=== PATIENT | male | born 1945 | race Caucasian/White ===

== ENCOUNTER 2021-12-03 07:50 | Outpatient (CLI) | payer OTHER, MEDICARE, SELFPAY ==
--- NOTE | 2021-12-03 08:34 | PCM.PR.HP ---
History of Present Illness Arrival date:: 12/03/21 Arrival time:: 08:00 Date of Referral:: 11/05/21 Date of Evaluation: 12/03/21 Referring Physician: OMKAR STACY Primary Diagnosis: COPD [facility] Breathless Scale: When is the patient short of breath? Y/N Grade: Description of Breathlessness: 0 I only get breathless with strenuous exercise. 1 I get short of breath when hurrying on level ground or walking up a slight hill. 2 On level ground, I walk slower than people of the same age because of breathless, or have to stop for breath when walking at my own pace. 3 I stop for breath after walking 100 yards or after a few minutes on level ground. 4 I am too breathless to leave the house or I am breathless when dressing. Respiratory Problems: Yes: Limited Range of Motion, Fatigue, Able to Speak in Full Sentences, Ankle Swelling, Dyspnea with Activity, Cough with Secretions No: Dizziness, Hoarseness, Anxiety, Panic, Dyspnea at Rest, Dyspnea Lying Down Flat - Secretions Normal Color:: clear Thin:: Yes Amount/Day:: 1 TSP Cough:: Yes AM: Yes Hx of Sleep Apnea: No Do you snore loudly (louder than talking or can be heard through closed doors)?: Yes Do you often feel tired/ fatigued/ sleepy during daytime?: No Has anyone observed you stop breathing during sleep?: No History of Hypertension (for STOP score): Yes STOP Results: Positive Home Medications: Home Medications albuterol mcg INHALATION PRN 12/03/21 allopurinol 100 mg PO DAILY 12/03/21 aspirin 81 mg PO DAILY 12/03/21 atorvastatin 40 mg PO QHS 12/03/21 carboxymethylcellulose ea MISCELLANEOUS 12/03/21 doxazosin 8 mg PO QHS 12/03/21 guaifenesin [Mucinex] 600 mg PO BID 12/03/21 hydrochlorothiazide 25 mg PO DAILY 12/03/21 trazodone 200 mg PO QHS 12/03/21 umeclidinium-vilanterol [Anoro Ellipta] 1 inh INHALATION DAILY 12/03/21 Allergies/Adverse Reactions: Allergies lisinopril Allergy (Verified 12/03/21 08:42) Other Medical Utilization Do you use a peak flow meter at home?: No Do you use a spacer device with your inhalers?: No Number of hospital visits in the last year?: 1 Number of emergency room visits in the last year?: 1 Do you see your physician on a regular schedule?: Yes How often?: 3 months Advanced Directives - Advanced Directives Power of Direct Service Provider: Yes Living Will: Yes Advance Directives Information Provided: No Advance Directives on File: No DNR Order?:: No - MOLST See MOLST form: No Past Medical History - Covid-19 Screening Fever: No Unexplained muscle aches: No Current respiratory symptoms: No Upper respiratory infections symptoms: No Gastro-intestinal symptoms: No [id number]-[id number] symptoms: No Has tested positive for COVID-19 in last 30 days: No Date of testin12/03/21 - been fully vaccinated including booster Had contact w/person w/symptoms or Covid-19 (+) last 14 days: No Has High Risk Exposures ID'd by Health dept/Inf Control team: No 65 years or older:: Yes Lives in Assisted Living facility:: No Has a chronic lung disease or moderate to severe asthma:: Yes Has a serious heart condition:: No Immunocompromised:: No Severely obese (Body Mass Index of 40 or higher):: No Diabetic:: No Has chronic kidney disease undergoing dialysis:: No Has liver disease:: No Medical History: Past Medical History (Last Updated 12/03/21 @ 08:49 by Wilbur Simpson, [employer], PRIMARY CLINICIAN, BS) Arthralgia M25.50 Arthritis M19.90 Bladder cancer C67.9 Chronic kidney disease, stage 3 N18.30 COPD (chronic obstructive pulmonary disease) J44.9 Diverticulitis K57.92 Enlarged prostate N40.0 Former smoker Z87.891 H/O hemorrhoids Z87.19 Hyperlipidemia E78.5 Hypertension I10 Insomnia G47.00 Low back pain M54.50 Malignant neoplasm of gastrointestinal tract C26.9 Restless leg syndrome G25.81 Retinopathy H35.00 Shoulder pain, left M25.512 Sleep disturbance, unspecified G47.9 - Current/ Previous Services Pulmonary Rehab:: No Social History - Smoking History Smoking Status: Former smoker Hx Tobacco Use: No Hx Smoking Exposure: No - Alcohol Use Alcohol Usage: No - Substance Abuse Hx Substance Use: No - Occupation Occupation (List type of work in comments):: Retired - Hobbies, Recreation, Social Activities Hobbies: Woodworking, Other Recreational Activities: I am able to engage in a few activities Functioning ADL/IADL - Current Ability Current Ability: Independent Self-Care (e.g.,grooming, dressing, & bathing), Independent Ambulation, Independent Transfer, Independent Household tasks (e.g., light meal prep, laundry, shopping) - Pt Functioning Prior to Problem Prior Functioning: Self-Care (e.g.,grooming, dressing, & bathing): Independent, Ambulation: Independent, Transfer: Independent, Household tasks (e.g., light meal prep, laundry, shopping): Independent Social Environment - Status Marital Status: - Current Living Arrangements Living Environment:: Home care provider - Children How many children do you have?: 0 Do any of your children live nearby?: No - Safety Do you feel safe in your surroundings?: Yes - Assistance Do you need any assistance at home?: no Review of Systems Review of Systems: Right click = Denies ([place]ash). Left click = Reports ([place]) Respiratory: Reports: Cough, SOB upon Exertion, Appetite, Normal, Dizziness/Lightheadedness, Fatigue. Denies: Sexual changes, Sleep, Normal - insomnia, RLD, sleep disturbance Is Patient Pain Free?: No Pain Location: none Risk Factor Assessment - Vital Signs Temperature: 98.6 F Pulse Rate: 74 Pulse Rhythm: Regular Respiratory Rate: 16 Pulse Ox: 93 Blood Pressure: 122/81 - Diabetes Nutrition Referral for Diabetes: No - Obesity Height: 6 ft Weight:: 269 lb Weight in Pounds: 269.0 lbs Weight Source: Estimated by Patient Body Mass Index (BMI): 36.4 Nutritional Referral for Obesity: Yes - Why Weight Program - Physical Activity Physical Inactivity: None - Risk Stratification Risk Guidelines: Lowest Risk: Risk Factor for Smoking, Risk Factor for Dyslipidemia, Risk Factor for Diabetes, Risk Factor for Hypertension, Risk Factor for Depression, Highest Risk: Risk Factor for Obesity, Risk Factor for Sedentary Lifestyle Motivation - Motivation to Participate On a scale of 1 to 10, how prepared are you to commit to attending program?: 6 What do you see as barriers to successfully being able to complete the program?: iron deficiency, little motivation What do you see as the benefits of succesfully completing the program? In other words, what do you hope to get out of participating in the program?: increase endurance, healthier, help in great strides Are there issues you are dealing with that will interfere with completing the program?: none Do you have a spouse or signficant other, family or friends who will help support you to complete the program?: yes Diagnostic Data Review - Pulmonary Function Test FEV1:: 2.48 FVC:: 4.41 FEV1/FVC%:: 56 Gold Classification: GOLD class III(severe COPD)with FEV1/FVC<70, 30%</=FEV1< 50% predicted
[2021-12-03 08:55] VITALS: BP 122/81; PULSE 74; RESP 16; TEMP 37; O2SAT 93; BMI 36.4
--- NOTE | 2021-12-03 09:41 | PCM.PR.TP ---
General Information2 - General Information Admitting Diagnosis: COPD Gold Classification:: GOLD 3: Severe - Personal Learning Style/Barriers Personal Learning Style:: Audio/Visual, Written Barriers to Learning: Vision impaired, Hearing impaired Stage of change r/t lifestyle modifications: Pre-Contemplation Educational Classes HI: Living with Chronic Lung Disease: Initial Assessment, Breathing Retraining: Initial Assessment, Exercise: Initial Assessment, Energy Conservation: Initial Assessment, Airway clearance: Initial Assessment - Education/Goals Individual Counseling: Initial Assessment: High Blood Pressure, Overweight/Obesity, Waist Circumference: <35 females <40 males, Sedentary Lifestyle HI Patient Goals: Increase muscle strength: Initial Assessment, Experience less dyspnea: Initial Assessment, Improve energy level: Initial Assessment, Improve the ability to cope with ADLs: Initial Assessment, Improve diet and nutrition: Initial Assessment Exercise - Initial Assessment - Visit Date of Eval: 12/03/21 Session Number:: 0 - PRE-PULM REHAB EVALUATION - Problem/Goals Problems: Deconditioning, No regular exercise Goals:: HI: 2-3/wk for 18 weeks [36 sessions] - Physician Prescribed Exercise Modalities: Treadmill, Airdyne, NuStep Frequency (days/week): 3 Duration (Minutes):: 30-45 Intensity: 60-80% of age predicted maximum heart rate reserve Current METSs:: 3.0 Target HR:: 124 - 95-124 THRR Resting Blood Pressure: 122/81 Minimum SpO2 with exercise: 92 EKG Type: NSR w/occasional PVCs. - Plan Plan and Plan to Review:: Benefits of exercise, Core components of exercise, How to measure dyspnea level, How to monitor dyspnea level, Exercise intensity, Exercise safety guideline, Home exercise guidelines, Josr: 3-4/11-13 Home Exercise Mode: Walking Nutrition/Wt Mgmt - Initial - Visit Date of Eval: 12/03/21 Session Number:: 0 - pre-pulm rehab eval - Problems/Goals Problems: Overweight Goals: Wt Loss 1-2 lbs per week - Weight Management Knowledge Deficit Management of:: Overweight Admit Height:: 6 ft Admit Weight:: 269 lb Admit BMI:: 36.4 - Intervention Referral to dietitian:: Yes Will attend diet classes:: Yes Intervention/Plan: Instruct on ideal BMI & set weight loss goal w/patient, Assist pt to ID & incorporate diet changes for weight loss by S9, Refer to Structured Weight Loss program as appropriate, Encourage goal of using 250-300dcal per session for weight loss - Plan Nutrition Plan: Yes Review BMI or WC & identify target wt & strategies for wt control, Yes Nutrition education class:, Yes Weight control education class:, Yes Education re: Need for ongoing weight monitoring Psychosocial - Initial Assess - Visit Date of Eval: 12/03/21 Session Number:: 0 - pre-pulm rehab eval - Problems/Goals History of Emotional Disorders: None - Psychosocial Test Tool Used:: Pulmonary QOL, PHQ-9 Questionnaire - Referral to Behavioral Health PS - Interventions: Yes Attend Stress Management Classes, No Referral to Behavioral Health if PHQ-9 score >9:, No Referral to [facility], No Referral to Physician if PHQ-9 if score is 5-9: - Intervention/Plan: See List Interventions/Plan:: Assess stressors,coping strategies & signs of derpression on admission, Instruct/assist pt to develop coping & personal stress Mgt strategies, Instruct patient to recognize signs & symptoms of depression, Instruct patient to recog Oxygen & Oxygen Titration Init - Visit Date of Eval: 12/03/21 Session Number:: 0 - pre- pulm rehab eval - Initial Assessment Oxygen on Admission: None SpO2:: 93 - o2 at 2 liter HS Patient Reports:: Prod cough daily <1 Tbsp, Hospitalized in the past 12 months [list how many times] - 1 - exacerbation COPD - Goal Oxygen & Oxygen Tritration Goals: Effective hypoxemia control - Plans Plan: Monitor SpO2 rest & with exercise, Train appropriate O2 use with exercise, Train O2 safety & systems Reviewed prescribed medications:: Purpose, Schedule, Side effects, Importance of compliance Instruct correct technique/timing & care:: MDI Bronchial Hygiene Plan: Controlled cough, Vibratory PEP device, Hydration, Hand hygiene, Signs/symptoms to report: Core Components - Initial - Visit Date of Eval: 12/03/21 Session Number:: 0 - pre-pulm rehab eval - Hypertension Hypertension Diagnosis:: Hypertension ICD-10 I10 BP: 122/81 [place] [employer] Hypertension Guidelines: [place] [employer] Hypertension Guidelines. Normal BP Less than 120/80. Elevated BP 120/80. Hypertension Stage 1: BP 130-139/80-89. Hypertesnion Stage 2: BP 140 or higher/90 or higher. Hypertension Crisis: BP higher than 180/120 Low Sodium diet: Yes Outcomes/Goals: Able to verbalize/achieve optimal blood pressure <130/80, Incorporates diet changes & exercise for blood pressure control by DC - Exacerbation Mgmt & Airway Clearance Problems:: No portable O2 Hypoxemia Goals:: Hypoxemia managed Bronchial Hygiene Problems:: Ineffective secretion clearance, Respiratory infection Prevention/Management Goals: Pt demonstrates effective cough, effective secretion clearance., Pt describes signs and symptoms of infection. Patient Reports:: Prod cough daily <1 Tbsp Plan: Monitor SpO2 rest & with exercise Bronchial Hygiene Plan: Vibratory PEP device, Hydration, Hand hygiene - Medication Medication Goals: Adherence to prescribed medications Does pt report taking home meds as prescribed?: Yes - Diabetes Diabetes:: No - Heart Failure Documenting weight daily for CHF: No Core Components - 30 DAYS Core Components - 60 DAYS Core Components - 90 DAYS Core Components - Final Patient Health Questionnaire Initial Assessment 1. Little interest or pleasure in doing things: Several days 2. Feeling down, depressed, or hopeless: Not at all 3. Trouble falling or staying asleep, or sleeping too much: Several days 4. Feeling tired or having little energy: More than half the days 5. Poor appetite or overeating: Not at all 6. Feeling bad about yourself -- or that you are a failure or have let yourself or your family down: Not at all 7. Trouble concentrating on things, such as reading the newspaper or watching television: Not at all 8. Moving or speaking so slowly that other people could have noticed. Or the opposite - being so fidgety or restless that you have been moving around a lot more than usual: Not at all 9. Thoughts that you would be better off , or of hurting yourself in some way: Not at all How difficult have these problems made it for you to do your work, take care of things at home, or get along with other people?: Somewhat difficult Total Score: 4 Knowledge Questionaire (BCKQ) - Information Information: [place] COPD Knowledge Questionnaire (BCKQ) This questionnaire is designed to find out what you know about your lung problem. It should be completed without help form anyone else. This usually takes between 10 and 20 minutes. Your answers will help us to find out what information you need to help you to understand and manage your lung condition. [place] which you think is the correct answer. - Questions b. COPD can only be confirmed by breathing tests: False c. In COPD ther is usually gradual worsening over time: True d. In COPD oxygen levels in the blood are always low: True e. COPD is usually in people less than 40 years old: False Chris than 80% of COPD cases are caused by cigarette smoking: True b. COPD can be caused by occupational dust exposure: True c. Longstanding asthma can develop into COPD: True d. COPD is commonly an inherited disease: False e. Women are less vunerable to the effects of cigarette than men: False a. Swelling of the ankles is common in COPD:: Don't know b. Fatigue [tiredness] is common in COPD: True c. Wheezing is common in COPD: True d. Crushing chest pain is common in COPD: False e. Rapid weight loss is common in COPD: False a. Severe breathlessness prevents travel by air: True b. Breathlessness can be worsened by eating large meals: Don't know c. Breathlessness means that your oxygen levels are low: True d. Breathlessness is a normal response to exercise: False e. Breathlessness is primarily caused by a narrowing of the bronchial tubes: Don't know a. Coughing phlegm is a common symptom in COPD: True b. Clearing phlegm is more difficult if you get dehydrated: Don't know c. Bronchodilator inhalers can help clear phlegm: True d. Phlegm causes harm if swallowed: False e. Clearing phlegm can be assisted by breathing exercises: True a. Chest infections often cause coughing of blood: Don't know b. Chest infection phlegm usually becomes coloured (ylw/grn): Don't know cExerbations (episodes of worsening) can occur in the absence of chest infection: Don't know d. Chest infections are always accompanied by a high temperature: False e. Steroid tablets should be taken whenever there is an exacerbation: Don't know aWalking excercises better than breathing to improve fitness: Don't know b. Exercise should be avoided as it strains the lungs: False c. Exercise can help maintain your bone density: False d. Exercise helps relieve depression: False e. Exercise should be stopped if it makes you breathless: Don't know a. Stopping smoking will reduce the risk of heart disease: True b. Stopping smoking will slow down further lung damage: True c. Stopping smoking is pointless as the damage is done: False d.Stopping smoking usually results in improved lung function: True eNicotine replacement therapy only available on prescription: False a. A flu jab is recommended every year: True b. You can get flu from having a flu jab: Don't know c. You can only have a flu jab if you are 65 or over: False d. A pneumonia jab protects against all forms of pneumonia: False e.You can have a pneumonia jab and a flu job on the same day: Don't know a. Bronchodilators act quickly (within 10 minutes): Don't know b. Both short & long acting bronchodilators can be taken on the same day: True c. Spacers (volumatic,nebuhaler,serochamber)should be dried w/atowel after washing: True d. A spacer device increases the medication to the lungs: Don't know e. Tremor may be a side effect of bronchodilators: False a. To be effective, the course should last at least 10 days: Don't know b. Excessive use of antibiotics can cause resistant bacteria (germs): Don't know c. Antibiotics will clear all chest infections: False d. Antibiotic treatment is necessary for an exacerbation (worsening) however mild: True e. Seek advice if antibiotics cause severe diarrhoea: True a. Steroid tablets help strengthen muscles: False b. Steroid tablets should be avoided if there is a chest infection: Don't know c. The risk of long-term side effects due to steroids is less w/short courses then w/continous treatment: Don't know dIndigestion is common side effect from using steroid tablet: False e. Steroid tablets can increase your appetite: Don't know a. Inhaled steroids should be stopped if you are given steroid tablets: Don't know bSteroid inhalers can be used for rapid relief breathlessnes: True c. Spacer devices reduce the risk of getting thrush in the mouth: Don't know d.Steroid inhaler should be taken before your bronchodilator: Don't know e. Inhaled steroids improve lung function in COPD: Don't know COPD Assessment Test [CAT] - Questions No phlegm = 0, Chest full of phlegm = 5: 4 No chest tightness = 0, Chest very tight = 5: 3 No breathless w/exertion = 0, Very breathless w/exertion = 5: 4 No limitations w/activity = 0, Very limited w/activity = 5: 4 Confident leaving home = 0, Not at all confident = 5: 1 Sleep soundly = 0, Don't sleep soundly = 5: 3 Lots of energy = 0, No energy at all = 5: 3 Self-Efficacy Initial Assessment We would like to know how confident you are in doing certain activities. Please select your confidence level for:: Select your confidence level for the following using the scale 1-10 where 1 is not at all confident and 10 is totally confident. Your score is the average of all 6 responses. Fatigue: How confident are you that you can keep the fatigue caused by your disease from interfering with the things you want to do? Select Number: 7 Physical Discomfort or Pain: How confident are you that you can keep the physical discomfort or pain of your disease from interfering with the things you want to do? Select Number: 8 Emotional Distress: How confident are you that you can keep the emotional distress caused by your disease from interfering with the things you want to do? Select Number: 9 Other Symptoms or Health Problems: How confident are you that you can keep other symptoms or health problems from interfering with the things you want to do? Select Number: 8 Different Tasks and Activities: How confident are you that you can do the different tasks and activities needed to manage your health condition so as to reduce your need to see a doctor? Select Number: 6 Medication: How confident are you that you can do things other than just taking medication to reduce how much your illness affects your everyday life? Select Number: 7 Total Score:: 7 Nutrition Survey - Nutrition Survey Initial Have you lost >10 lbs over the past 2 months without trying?: No Are you following a special diet at home for diabetes, low fat, or low salt?: No Are you interested in meeting with a dietitian for help understanding your diet?: Yes Do you eat less than 3 meals a day?: No Do you eat fatty meats (miranda, sausage, ribs, etc), fried foods, desserts, large amounts of salad dressings, margarine, butter, or cheese most days?: Yes Do you have food allergies? [Enter types in comment field]: No Do you eat in restaurants more than 3 times a week?: No Do you season food with salt, seasoning salt, or garlic salt?: No Do you used canned, boxed, frozen meals, or soups, seasoning packets?: No Total Score:: 2
[2021-12-03 09:54] VITALS: BP 122/81; O2SAT 93; BMI 36.4
== END 2021-12-03 23:59 | disposition home or self-care (01) ==
PROVIDERS: PCP Student in an Organized Health Care Education/Training Program
DX: I12.9 Hypertensive chronic kidney disease with stage 1 through stage 4 chronic kidney disease, or unspecified chronic kidney disease (principal); N18.30 Chronic kidney disease, stage 3 unspecified; E78.5 Hyperlipidemia, unspecified

== ENCOUNTER 2021-12-18 10:30 | Outpatient (RCR) | payer OTHER, SELFPAY | END 2021-12-19 23:59 | LOC: PR 10:30 | PROVIDERS: PCP Student in an Organized Health Care Education/Training Program | DX: J44.9 Chronic obstructive pulmonary disease, unspecified (principal) | CPT/HCPCS: 97150; 94626 ==

== ENCOUNTER 2022-01-04 08:30 | Outpatient (RCR) | payer MEDICARE, SELFPAY ==
[2022-01-01 07:27] VITALS: BMI 38.1
== END 2022-01-19 23:59 ==
LOC: NS 08:30
PROVIDERS: PCP Student in an Organized Health Care Education/Training Program
DX: Z71.3 Dietary counseling and surveillance (principal); I12.9 Hypertensive chronic kidney disease with stage 1 through stage 4 chronic kidney disease, or unspecified chronic kidney disease; N18.30 Chronic kidney disease, stage 3 unspecified; E78.5 Hyperlipidemia, unspecified
CPT/HCPCS: 97802

== ENCOUNTER 2022-01-15 10:30 | Outpatient (RCR) | payer OTHER, SELFPAY ==
--- NOTE | 2022-01-01 07:16 | PR.ITP_ITS ---
Exercise - 30-Day Assessment - Visit Date of Eval: 01/01/22 Session Number:: 8 - Physician Prescribed Exercise Modalities: Treadmill, Biodyne - Schwinn Airdyne Cycle, NuStep Intensity: 60-80% of age predicted maximum heart rate reserve Aerobic Exercise [30-60 min 3-7x/week]:: Progressing Josr-13 Current METSs:: 4.0 Target HR:: 125 - 95-125 THRR Current RPD:: 3 Maximum Exercise HR:: 83 Resting Blood Pressure: 118/64 Maximum Exercise Blood Pressure: 142/70 Minimum SpO2 with exercise: 89 - room air EKG Type: NSR to sinus tach w/rare PVC Current Minutes of Exercise: 51 - Home Exercise Home Exercise:: Yes Mode: Walking - increasing home physical activity Nutrition/Wt Mgmt - 30-Day - Visit Date of Eval: 01/01/22 Session Number:: 8 - Weight Management Weight Assessment:: BMI 21 to 25 Height: 6 ft Weight:: 281 lb BMI: 38.1 Weight Goals Progress:: Not progressing Psychosocial - 30-Day - Visit Date of Eval: 01/01/22 Session Number:: 8 - Problems/Goals History of Emotional Disorders: None Psychosocial Goals: 1. Patient is free from overwhelming symtoms of depression (or anxiety, 2. Identifies personal stressors & states the strategies for managing, 3. Identifies activities to decrease isolation and/or symptoms of, 4. Improved psychosocial coping skills., 5. Verbalizes coping strategies., 6. Karely quate treatment of depression., 7. Improved Q.O.L. - Psychosocial Test Tool Used:: PHQ-9 Questionnaire - Referral to Behavioral Health PS - Interventions: Yes Attend Stress Management Classes, No Referral to Behavioral Health if PHQ-9 score >9:, No Referral to [facility], No Referral to Physician if PHQ-9 if score is 5-9: - Plan Interventions/Plan:: Assess stressors,coping strategies & signs of derpression on admission, Instruct/assist pt to develop coping & personal stress Mgt strategies, Instruct patient to recognize signs & symptoms of depression, Instruct patient to recog Oxygen & Oxygen Titration 30D - Visit Date of Eval: 01/01/22 Session Number:: 8 - Reassessment Reassessment- 30 Days: Demonstrate knowledge of O2 Rx at rest & w/exercise Breath Sounds:: Insp. & Exp. Wheezing SpO2:: 92 - room air on arrival to [place] Core Components - Initial Core Components - 30 DAYS - Visit Date of Eval: 01/01/22 Session Number:: 8 - Hypertension Hypertension Diagnosis:: Hypertension ICD-10 I10 Resting Blood Pressure:: 118/64 [place] [employer] Hypertension Guidelines: [place] [employer] Hypertension Guidelines. Normal BP Less than 120/80. Elevated BP 120/80. Hypertension Stage 1: BP 130-139/80-89. Hypertesnion Stage 2: BP 140 or higher/90 or higher. Hypertension Crisis: BP higher than 180/120 Peak Exercise Blood Pressure:: 142/70 Change in medication: No Outcomes/Goals: Able to verbalize/achieve optimal blood pressure <130/80, Incorporates diet changes & exercise for blood pressure control by DC Interventions/plan: Instruct on optimal blood pressure, hypertension & medications, Instruct on effects of sodium, alcohol, stress, exercise &hypertension 30 day Reassessments:: Progressing - Tobacco - 30-Day Tobacco Program Goals: Complete smoking cessation. Attend education classes. Improve Knowledge Test score Stages of Change:: Action Learning Barriers: Change in behavior Do you have family support?: Yes Tobacco Use: Non-smoker - Former smoker quit 2 years !! Do you use smokeless tobacco?: No Smoking Cessation Referral:: No Education Schedule Given:: Yes - Actively participates in education 30-day Reassessments:: Met - Exacerbation Mgmt & Airway Clearance Reassessment: Demonstrates knowledge of O2 Rx with exercise Bronchial Hygiene Plan: Yes Pt demo correct for improved hydration, Yes Pt demo correct for hand hygiene - Medication Medication list reviewed:: Yes Taking medications 100% of the time:: Met - uses medications daily as prescribed. Medication reassessment: Yes Pt demonstrates correct technique timing for MDI, Yes Pt demonstrates correct technique timing for DPI, Yes Pt demonstrates correct technique timing for NEB, Yes Pt demonstrates correct technique timing for spacer - Diabetes Diabetes:: No - Heart Failure Documenting weight elinaa: No Core Components - 60 DAYS Core Components - 90 DAYS Core Components - Final Patient Health Questionnaire 30-Day Re-eval Assessment 1. Little interest or pleasure in doing things: Not at all 2. Feeling down, depressed, or hopeless: Not at all 3. Trouble falling or staying asleep, or sleeping too much: Several days 4. Feeling tired or having little energy: Several days 5. Poor appetite or overeating: Not at all 6. Feeling bad about yourself -- or that you are a failure or have let yourself or your family down: Not at all 7. Trouble concentrating on things, such as reading the newspaper or watching television: Not at all 8. Moving or speaking so slowly that other people could have noticed. Or the opposite - being so fidgety or restless that you have been moving around a lot m ore than usual: Not at all 9. Thoughts that you would be better off , or of hurting yourself in some way: Not at all How difficult have these problems made it for you to do your work, take care of things at home, or get along with other people?: Somewhat difficult - mostly due to shortness of breath with his activities but improving social and recreational activity. Total Score: 2 Knowledge Questionaire (BCKQ) - Information Information: [place] COPD Knowledge Questionnaire (BCKQ) This questionnaire is designed to find out what you know about your lung problem. It should be completed without help form anyone else. This usually takes between 10 and 20 minutes. Your answers will help us to find out what information you need to help you to understand and manage your lung condition. Gary the [place] [employer] which you think is the correct answer. Self-Efficacy 30-Day Re-eval Assessment We would like to know how confident you are in doing certain activities. Please select your confidence level for:: Select your confidence level for the following using the scale 1-10 where 1 is not at all confident and 10 is totally confident. Your score is the average of all 6 responses. Fatigue: How confident are you that you can keep the fatigue caused by your disease from interfering with the things you want to do? Select Number: 7 Physical Discomfort or Pain: How confident are you that you can keep the physical discomfort or pain of your disease from interfering with the things you want to do? Select Number: 8 Emotional Distress: How confident are you that you can keep the emotional distress caused by your disease from interfering with the things you want to do? Select Number: 9 Other Symptoms or Health Problems: How confident are you that you can keep other symptoms or health problems from interfering with the things you want to do? Select Number: 9 Different Tasks and Activities: How confident are you that you can do the different tasks and activities needed to manage your health condition so as to reduce your need to see a doctor? Select Number: 7 Medication: How confident are you that you can do things other than just taking medication to reduce how much your illness affects your everyday life? Select Number: 8 Total Score:: 8 Nutrition Survey
[2022-01-01 07:27] VITALS: BP 118/64; BP 142/70; O2SAT 92; BMI 38.1
== END 2022-01-19 23:59 ==
LOC: PR 10:30
PROVIDERS: PCP Student in an Organized Health Care Education/Training Program
DX: J44.9 Chronic obstructive pulmonary disease, unspecified (principal)
CPT/HCPCS: 97150; 94626

== ENCOUNTER 2022-02-17 10:30 | Outpatient (RCR) | payer OTHER, SELFPAY ==
[2022-01-01 07:27] VITALS: BMI 38.1
[2022-01-20 01:06] VITALS: BP 118/64; BP 142/70
--- NOTE | 2022-02-01 08:26 | PR.ITP_ITS ---
Exercise - 60-Day Assessment - Visit Date of Eval: 02/01/22 Session Number:: 23 - Patient took a personal vacation from 01/27/2022 through 02/05/2022 - Physician Prescribed Exercise Modalities: Treadmill, Biodyne - Schwinn Airdyne Bike, NuStep Frequency (days/week): 3 Duration (Minutes):: 38:16 Intensity: 60-80% of age predicted maximum heart rate reserve Aerobic Exercise [30-60 min 3-7x/week]:: Progressing Current METSs: 4.5 Target HR:: 125 - THRR 95-125 Current RPD:: 13 Maximum Exercise HR:: 90 Resting Blood Pressure: 116/72 Maximum Exercise Blood Pressure: 118/78 Minimum SpO2 with exercise: 89 - on room air EKG Type: NSR to sinus tach with PVCs Current Minutes of Exercise: 38:16 Nutrition/Wt Mgmt - 60-Day - Visit Date of Eval: 02/01/22 Session Number:: 23 - Weight Management Height: 6 ft Weight:: 279 lb 8 oz BMI: 37.9 Weight Goals Progress:: Referral to structured weight management program Psychosocial - 60-Day - Visit Date of Eval: 02/01/22 Session Number:: 23 - Problems/Goals Depression:: Self report - Psychosocial Test Tool Used:: PHQ-9 Questionnaire Referred to MD for counseling:: Yes - Referral to Behavioral Health PS - Interventions: Yes Referral to Physician if PHQ-9 if score is 5-9:, Yes Attend Stress Management Classes, No Referral to Behavioral Health if PHQ-9 score >9:, No Referral to [facility] - Plan Interventions/Plan:: Assess stressors,coping strategies & signs of derpression on admission, Instruct/assist pt to develop coping & personal stress Mgt strategies, Instruct patient to recognize signs & symptoms of depression, Instruct patient to recog Oxygen & Oxygen Titration 60D - Visit Date of Eval: 02/01/22 Session Number:: 23 - Reassessment Reassessment- 60 Days: Demonstrate knowledge of O2 Rx at rest & w/exercise Breath Sounds:: Diminished, Insp. & Exp. Wheezing SpO2:: 92 - room air at rest. Core Components - Initial Core Components - 30 DAYS Core Components - 60 DAYS - Visit Date of Eval: 02/01/22 Session Number:: 23 - Hypertension Hypertension Diagnosis:: Hypertension ICD-10 I10 Resting Blood Pressure:: 116/72 [place] [employer] Hypertension Guidelines: [place] [employer] Hypertension Guidelines. Normal BP Less than 120/80. Elevated BP 120/80. Hype rtension Stage 1: BP 130-139/80-89. Hypertesnion Stage 2: BP 140 or higher/90 or higher. Hypertension Crisis: BP higher than 180/120 Peak Exercise Blood Pressure:: 130/76 Change in medication: No Outcomes/Goals: Able to verbalize/achieve optimal blood pressure <130/80, Incorporates diet changes & exercise for blood pressure control by DC Interventions/plan: Instruct on optimal blood pressure, hypertension & medications, Instruct on effects of sodium, alcohol, stress, exercise &hypertension 60 day Reassessments:: Progressing - Exacerbation Mgmt & Airway Clearance Reassessment: Demonstrates knowledge of O2 Rx with exercise Bronchial Hygiene Plan: Yes Pt demo correct for device - instructed and return demonstration SMI & P-Flex devices., Yes Pt demo correct for improved hydration, Yes Pt demo correct for hand hygiene, Yes Pt demo correct for verbalize when to call MD - Medication Medication list reviewed:: Yes Taking medications 100% of the time:: Met - Diabetes Diabetes:: No - Heart Failure Documenting weight eliana: No Core Components - 90 DAYS Core Components - Final Patient Health Questionnaire 60-Day Re-eval Assessment 1. Little interest or pleasure in doing things: Not at all 2. Feeling down, depressed, or hopeless: Not at all 3. Trouble falling or staying asleep, or sleeping too much: Several days 4. Feeling tired or having little energy: Several days 5. Poor appetite or overeating: Not at all 6. Feeling bad about yourself -- or that you are a failure or have let yourself or your family down: Not at all 7. Trouble concentrating on things, such as reading the newspaper or watching television: Not at all 8. Moving or speaking so slowly that other people could have noticed. Or the opposite - being so fidgety or restless that you have been moving around a lot more than usual: Not at all How difficult have these problems made it for you to do your work, take care of things at home, or get along with other people?: Somewhat difficult Total Score: 2 Knowledge Questionaire (BCKQ) - Information Information: [place] COPD Knowledge Questionnaire (BCKQ) This questionnaire is designed to find out what you know about your lung problem. It should be completed without help form anyone else. This usually takes between 10 and 20 minutes. Your answers will help us to find out what information you need to help you to understand and manage your lung condition. Gary the [place] which you think is the correct answer. Self-Efficacy 60-Day Re-eval Assessment We would like to know how confident you are in doing certain activities. Please select your confidence level for:: Select your confidence level for the following using the scale 1-10 where 1 is not at all confident and 10 is totally confident. Your score is the average of all 6 responses. Fatigue: How confident are you that you can keep the fatigue caused by your disease from interfering with the things you want to do? Select Number: 7 Physical Discomfort or Pain: How confident are you that you can keep the physical discomfort or pain of your disease from interfering with the things you want to do? Select Number: 8 Emotional Distress: How confident are you that you can keep the emotional distress caused by your disease from interfering with the things you want to do? Select Number: 9 Other Symptoms or Health Problems: How confident are you that you can keep other symptoms or health problems from interfering with the things you want to do? Select Number: 9 Different Tasks and Activities: How confident are you that you can do the different tasks and activities needed to manage your health condition so as to reduce your need to see a doctor? Select Number: 7 Medication: How confident are you that you can do things other than just taking medication to reduce how much your illness affects your everyday life? Select Number: 8 Total Score:: 8 Nutrition Survey
[2022-02-01 08:35] VITALS: BP 116/72; BP 130/76; O2SAT 92; BMI 37.9
== END 2022-02-18 23:59 ==
LOC: PR 10:30
PROVIDERS: PCP Student in an Organized Health Care Education/Training Program
DX: J44.9 Chronic obstructive pulmonary disease, unspecified (principal)
CPT/HCPCS: 97150; 94626

== ENCOUNTER 2022-03-19 10:30 | Outpatient (RCR) | payer OTHER, SELFPAY ==
[2022-02-01 08:35] VITALS: BMI 37.9
[2022-02-19 00:38] VITALS: BP 116/72; BP 130/76
--- NOTE | 2022-03-01 09:06 | PCM.PR.TP ---
Exercise - 60-Day Assessment - Visit Date of Eval: 03/01/22 Session Number:: 25 - Physician Prescribed Exercise Modalities: Treadmill, NuStep, SciFit Intensity: 60-80% of age predicted maximum heart rate reserve Aerobic Exercise [30-60 min 3-7x/week]:: Progressing Josr Current METSs: 4.5 Target HR:: 125 - THRR 95-125 Current RPD:: 13 Maximum Exercise HR:: 94 Resting Blood Pressure: 118/64 Maximum Exercise Blood Pressure: 132/60 Minimum SpO2 with exercise: 89 EKG Type: NSR to sinus tach with rare PAC and PVC - Home Exercise Home Exercise:: Yes Mode: Walking Frequency:: daily Time (minutes):: 30 Nutrition/Wt Mgmt - 60-Day - Visit Date of Eval: 03/01/22 Session Number:: 25 - Weight Management Height: 6 ft Weight:: 282 lb BMI: 38.2 Weight Goals Progress:: Not progressing - encouraged patient in weight loss reduction Psychosocial - 60-Day - Visit Date of Eval: 03/01/22 Session Number:: 25 - Problems/Goals History of Emotional Disorders: None - Psychosocial Test Tool Used:: PHQ-9 Questionnaire Referred to MD for counseling:: No - Referral to Behavioral Health PS - Interventions: Yes Attend Stress Management Classes, No Referral to Behavioral Health if PHQ-9 score >9:, No Referral to [facility], No Referral to Physician if PHQ-9 if score is 5-9: - Plan Interventions/Plan:: Assess stressors,coping strategies & signs of derpression on admission, Instruct/assist pt to develop coping & personal stress Mgt strategies, Instruct patient to recognize signs & symptoms of depression, Instruct patient to recog Oxygen & Oxygen Titration 60D - Visit Date of Eval: 03/01/22 Session Number:: 25 - Reassessment Reassessment- 60 Days: Demonstrate knowledge of O2 Rx at rest & w/exercise Breath Sounds:: Clear, Diminished SpO2:: 93 - room air Core Components - Initial Core Components - 30 DAYS Core Components - 60 DAYS - Visit Date of Eval: 03/01/22 Session Number:: 25 - Hypertension Hypertension Diagnosis:: Hypertension ICD-10 I10 Resting Blood Pressure:: 118/64 [place] [employer] Hypertension Guidelines: [place] [employer] Hypertension Guidelines. Normal BP Less than 120/80. Elevated BP 120/80. Hypertension Stage 1: BP 130-139/80-89. Hypertesnion Stage 2: BP 140 or higher/90 or higher. Hypertension Crisis: BP higher than 180/120 Peak Exercise Blood Pressure:: 132/60 Change in medication: No Outcomes/Goals: Able to verbalize/achieve optimal blood pressure <130/80, Incorporates diet changes & exercise for blood pressure control by DC Interventions/plan: Instruct on optimal blood pressure, hypertension & medications, Instruct on effects of sodium, alcohol, stress, exercise &hypertension 60 day Reassessments:: Met - Tobacco - 60-Day Tobacco Program Goals: Complete smoking cessation. Attend education classes. Improve Knowledge Test score Tobacco Use: Non-smoker - Exacerbation Mgmt & Airway Clearance Reassessment: Demonstrates knowledge of O2 Rx at rest Bronchial Hygiene Plan: Yes Pt demonstrates correctly for effective cough, Yes Pt demo correct for device, Yes Pt demo correct for sputum management, Yes Pt demo correct for improved hydration, Yes Pt demo correct for hand hygiene, Yes Pt demo correct for verbalize when to call MD - Medication Medication list reviewed:: Yes Taking medications 100% of the time:: Met Medication reassessment: Yes Pt demonstrates correct technique timing for MDI, Yes Pt demonstrates correct technique timing for DPI, Yes Pt demonstrates correct technique timing for NEB, Yes Pt demonstrates correct technique timing for spacer - Diabetes Diabetes:: No - Heart Failure Documenting weight eliana: No Core Components - 90 DAYS Core Components - Final Patient Health Questionnaire 60-Day Re-eval Assessment 1. Little interest or pleasure in doing things: Not at all 2. Feeling down, depressed, or hopeless: Not at all 3. Trouble falling or staying asleep, or sleeping too much: Several days 4. Feeling tired or having little energy: Several days 5. Poor appetite or overeating: Not at all 6. Feeling bad about yourself -- or that you are a failure or have let yourself or your family down: Not at all 7. Trouble concentrating on things, such as reading the newspaper or watching television: Not at all 8. Moving or speaking so slowly that other people could have noticed. Or the opposite - being so fidgety or restless that you have been moving around a lot more than usual: Not at all 9. Thoughts that you would be better off , or of hurting yourself in some way: Not at all Total Score: 2 Knowledge Questionaire (BCKQ) - Information Information: [place] COPD Knowledge Questionnaire (BCKQ) This questionnaire is designed to find out what you know about your lung problem. It should be completed without help form anyone else. This usually takes between 10 and 20 minutes. Your answers will help us to find out what information you need to help you to understand and manage your lung condition. Gary the [place] which you think is the correct answer. Self-Efficacy 60-Day Re-eval Assessment We would like to know how confident you are in doing certain activities. Please select your confidence level for:: Select your confidence level for the following using the scale 1-10 where 1 is not at all confident and 10 is totally confident. Your score is the average of all 6 responses. Fatigue: How confident are you that you can keep the fatigue caused by your disease from interfering with the things you want to do? Select Number: 8 Physical Discomfort or Pain: How confident are you that you can keep the physical discomfort or pain of your disease from interfering with the things you want to do? Select Number: 8 Emotional Distress: How confident are you that you can keep the emotional distress caused by your disease from interfering with the things you want to do? Select Number: 9 Other Symptoms or Health Problems: How confident are you that you can keep other symptoms or health problems from interfering with the things you want to do? Select Number: 9 Different Tasks and Activities: How confident are you that you can do the different tasks and activities needed to manage your health condition so as to reduce your need to see a doctor? Select Number: 10 Medication: How confident are you that you can do things other than just taking medication to reduce how much your illness affects your everyday life? Select Number: 10 Total Score:: 9 Nutrition Survey
[2022-03-01 09:12] VITALS: BP 118/64; BP 132/60; O2SAT 93; BMI 38.2
== END 2022-03-21 23:59 ==
LOC: PR 10:30
PROVIDERS: PCP Student in an Organized Health Care Education/Training Program
DX: J44.9 Chronic obstructive pulmonary disease, unspecified (principal)
CPT/HCPCS: 97150; 94626

== ENCOUNTER 2022-03-24 10:30 | Outpatient (RCR) | payer OTHER, SELFPAY ==
[2022-03-01 09:12] VITALS: BMI 38.2
[2022-03-22 00:29] VITALS: BP 118/64; BP 132/60
== END 2022-04-21 23:59 ==
LOC: PR 10:30
PROVIDERS: PCP Student in an Organized Health Care Education/Training Program
DX: J44.9 Chronic obstructive pulmonary disease, unspecified (principal)
CPT/HCPCS: 97150; 94626

== ENCOUNTER 2023-02-21 06:08 | Day surgery (SDC) | payer OTHER, SELFPAY ==
[2022-03-01 09:12] VITALS: BMI 38.2
[2023-02-21] VITALS (7 sets, daily range): BP systolic 119–159; BP diastolic 73–87; PULSE 60–68; RESP 16–18; TEMP 36.3–36.9; O2SAT 94–97; BMI 35.6
--- NOTE | 2023-02-21 | COLBX_PTH ---
PATIENT: RUDDY NAGY LOC: [facility] U#:[id number] AGE/SX: 77/M ROOM: RE02/21/[address]: Dr. Fernando Landaverde MD : [id number] BED: DIS: 02/21/2023 SPEC #: [id number] RECD: 02/21/23 13:01 STATUS: [place] [place] #: [id number] ANNA: 02/21/23 00:[address]: Fernando Landaverde DEPT: SURGICAL PATHOLOGY RECD BY: Jerry Conley ENTERED: 02/21/23 13:01 SP TYPE: COLON BX OTHR DR: Dr. Obie Everett DO Tissues: Descending colon Procedures: Surgery Specimen Level IV HEADER OPERATION: Colonoscopy (MAC), polypectomy PRE-OP DIAGNOSIS: Screening TISSUE SUBMITTED: Descending colon polyp MICROSCOPIC DIAGNOSIS Descending colon polyp, polypectomy: A fragment of colonic mucosa with marked cautery artifacts. SJ:mickie 02/23/2023 MICROSCOPIC DESCRIPTION Slides are reviewed. GROSS DESCRIPTION Received in fixative is one container labeled with the patient's name and designated descending colon polyp. The specimen consists of one irregular fragment of light junior soft tissue that measures 0.3 x 0.2 x 0.1 cm. The specimen is totally submitted in one cassette. / BAM:mickie 02/21/2023 TC:5 CPT: 23165
[2023-02-21] MEDS: Lactated Ringers 1,000 ML 15 ML IV (06:38)
--- NOTE | 2023-02-21 06:40 | HP.PCM_ITS ---
History and Physical Date of Admission: 02/21/23 Intake Vital Signs 03/01/2209:12 01/31/2309:32 Height 6 ft 6 ft 2 in Weight: 279 lb 6 oz BMI 35.9 Blood Pressure Location Rt radial Position Sitting Respiration 18 Pulse 71 Pulse Source Monitor Intake Visit Reasons: COLONOSCOPY Chief Complaint: Colonoscopy consult [place] Knitter Required: No Is patient in pain?: No Allergies lisinopril Allergy (Verified 01/31/23 09:36) OtherLevitra Allergy (Unknown, Uncoded 01/31/23 09:36) Hives Medications albuterol 90 mcg/actuation aerosol inhaler mcg inhalation PRN Shortness Of Breath 12/03/21 [History Confirmed 01/31/23] allopurinol 100 mg tablet 100 mg PO DAILY 12/03/21 [History Confirmed 01/31/23] aspirin 81 mg tablet 81 mg PO DAILY 12/03/21 [History Confirmed 01/31/23] carboxymethylcellulose ea miscellaneous 12/03/21 [History Confirmed 01/31/23] doxazosin 8 mg tablet 8 mg PO QHS 12/03/21 [History Confirmed 01/31/23] guaifenesin 600 mg tablet, extended release 12 hr (Mucinex) 600 mg PO BID 12/03/21 [History Confirmed 01/31/23] hydrochlorothiazide 25 mg tablet 25 mg PO DAILY 12/03/21 [History Confirmed 01/31/23] trazodone 100 mg tablet 200 mg PO QHS 12/03/21 [History Confirmed 01/31/23] umeclidinium 62.5 mcg-vilanterol 25 mcg/actuation powdr for inhalation (Anoro Ellipta) 1 inh inhalation DAILY 12/03/21 [History Confirmed 01/31/23] atorvastatin 40 mg tablet 40 mg PO QHS 01/31/23 [History Confirmed 01/31/23] metoprolol tartrate 25 mg tablet 25 mg PO BID 01/31/23 [History Confirmed 01/20 10/14] PFSH Medical History Arthralgia Arthritis Bladder cancer Chronic kidney disease, stage 3 COPD (chronic obstructive pulmonary disease) Diverticulitis Enlarged prostate Former smoker H/O hemorrhoids Hyperlipidemia Hypertension Insomnia Low back pain Malignant neoplasm of gastrointestinal tract Restless leg syndrome Retinopathy Shoulder pain, left Sleep disturbance, unspecified Family History (Updated 01/31/23 @ 09:43 by Kelsey Keane) Father Colon cancer Social History Smoking Status: Former smoker HPI HPI HPI: Patient is here for follow-up colonoscopy. His last colonoscopy was 5 years ago and he was recommended to repeat in 5 years. He did not have polyps during his last colonoscopy but he has had them in the past. He denies any abdominal pain or blood in the stool. He did receive bowel prep from the [place]. He denies abdominal pain or blood in the stool. ROS General General: No weight change, appetite, fatigue, colon cancer, breast cancer or weakness HEENT HEENT: Yes eye injury and eye surgery; No difficulty swallowing, swollen glands or hoarseness Endo Endocrine: No thyroid disease, diabetes mellitus, thyroid cancer, Hair loss, heat intolerance or cold intolerance Skin Skin: No rash or changing moles Breast Breast: No left breast lump, right breast lump, nipple discharge, breast pain, abnormal mammogram, abnormal US or breast enlargement Musc Musculoskeletal: Yes back problems, arthritis and gout; No rheumatoid arthritis or joint pain Cardio Cardiovascular: Yes high blood pressure; No murmur, pacemaker, heart disease, atrial fibrillation, heart attack, heart stent, palpitations, shortness of breat with exertion or chest pain Psych Psychiatric: Yes depression and anxiety; No hearing voices Resp Respiratory: Yes shortness of breath, No sleep apnea, Yes cough, Yes COPD, No asthma, No emphysema and No wheezing Additional Details: SOB/cough at times Gastro Gastrointestinal: No abdominal pain, No nausea or vomiting, No diarrhea, No constipation, No blood in stool, No acid reflux, Yes hemorrhoids, No ulcers, No gallbladder problem and No black,tarry stools Celio Hematologic: Yes blood thinners, No blood disorders, No bleeding, No anemia and No blood clots Neuro Neurologic: No system reviewed and no additional complaints, except as documented, No as per HPI, No abnormal gait, No abnormal hearing, No abnormal movements, No abnormal speech, No behavioral changes, No burning sensations, No confusion, No convulsions, No disequilibrium, No dizziness, No localized weakness, No frequent falls, No headache(s), No lack of coordination, No loss of vision, No memory loss, No numbness, No other visual disturbances, No radicular pain, No restless legs, No sensory deficit, No syncope, No tingling, No tremor(s), No weakness and No other Exam Const General: cooperative Orientation: alert and oriented x3 HENMT Head: normal to inspection Neck Neck: normal visual inspection and full ROM Chest Chest palpation & inspection: normal inspection of the chest Resp Effort & Inspection: normal respiratory effort Auscultation: clear to auscultation bilaterally Cardio Rate: regular rate Rhythm: regular rhythm GI Inspection: non-distended Palpation: soft and nontender Skin General: no rashes or lesions noted Neuro General: patient alert and patient oriented x3 Extrem General: full ROM Psych Appearance: grossly normal Mental Status: mental status grossly normal Assessment and Plan Assessment and Plan (1) Screen for colon cancer: Status: Acute Plan: Patient is due for his neck screening colonoscopy. He was recommended to repeat in 5 years. He did not have colon polyps during his last colonoscopy was recommended to continue screening due to strong family history of polyps as well. [facility] I explained endoscopy in detail to the patient. I explained the risks including but not limited to stroke or heart attack with anesthesia, perforation of the GI tract, bleeding, infection. I explained that any of these could necessitate further emergency surgery. The patient understands and all questions were answered sufficiently. The patient wishes to proceed with procedure. Fernando Landaverde MD Pager: [facility] [address] [place] [address], [address] [place] [address] Office: I have examined the patient and the H&P has been reviewed. There are no clinical changes since date of exam.
--- NOTE | 2023-02-21 07:50 | OP.COLON_ITS ---
Patient Name: Yamil Spangler Procedure Date: 02/21/2023 7:10 AM Date of : 1945 Age: 77 Procedure: Colonoscopy Indications: High risk colon cancer surveillance: Personal history of colonic polyps Providers: Fernando Landaverde MD Referring MD: Fernando Landaverde MD Medicines: Monitored Anesthesia Care Patient Profile: This is a 77 year old male. Refer to note in patient chart for documentation of history and physical. Last Colonoscopy: 5 years ago. Complications: No immediate complications. Procedure: Pre-Anesthesia Assessment: - Prior to the procedure, a History and Physical was performed, and patient medications and allergies were reviewed. The patient's tolerance of previous anesthesia was also reviewed. The risks and benefits of the procedure and the sedation options and risks were discussed with the patient. All questions were answered, and informed consent was obtained. Prior Anticoagulants: The patient has taken no previous anticoagulant or antiplatelet agents. After reviewing the risks and benefits, the patient was deemed in satisfactory condition to undergo the procedure. After I obtained informed consent, the scope was passed under direct vision. Throughout the procedure, the patient's blood pressure, pulse, and oxygen saturations were monitored continuously. The was introduced through the anus and advanced to the cecum, identified by appendiceal orifice and ileocecal valve. The colonoscopy was performed without difficulty. The patient tolerated the procedure well. The quality of the bowel preparation was good. Scope In: 7:33:00 AM Scope Withdrawal Time 0 hours 8 minutes 12 seconds Scope Out: 7:45:40 AM Total Procedure Duration Time 0 hours 12 minutes 40 seconds Findings: A small polyp was found in the descending colon. The polyp was removed with a hot snare. Resection and retrieval were complete. The exam was otherwise without abnormality on direct and retroflexion views. Impression: - One small polyp in the descending colon, removed with a hot snare. Resected and retrieved. - The examination was otherwise normal on direct and retroflexion views. Recommendation: - Discharge patient to home. - Resume previous diet. - Continue present medications. - Await pathology results. - Repeat colonoscopy is not recommended due to current age (66 years or older) for screening purposes. Procedure Code(s): --- Professional --- 41748, Colonoscopy, flexible; with removal of tumor(s), polyp(s), or other lesion(s) by snare technique Diagnosis Code(s): --- Professional --- Z86.010, Personal history of colonic polyps D12.4, Benign neoplasm of descending colon CPT copyright 2017 [employer]. All rights reserved. The codes documented in this report are preliminary and upon rag room supervisor review may be revised to meet current compliance requirements. Fernando Landaverde MD 02/21/2023 7:49:55 AM This report has been signed electronically. Number of Addenda: 0 Note Initiated On: 02/21/2023 7:10 AM
--- NOTE | 2023-02-21 07:51 | OP.CCLET_ITS ---
02/21/2023 Obie Everett Do Re : Colonoscopy procedure for [place] Karlos This procedure was performed on Tuesday, February 21, 2023. My impressions and recommendations are as follows: Impressions : - One small polyp in the descending colon, removed with a hot snare. Resected and retrieved. - The examination was otherwise normal on direct and retroflexion views. Recommendations : - Discharge patient to home. - Resume previous diet. - Continue present medications. - Await pathology results. - Repeat colonoscopy is not recommended due to current age (66 years or older) for screening purposes. My findings are described in the full procedure note, which is enclosed. If I can be of further assistance, please feel free to contact me at Doctor phone number(s): , Work: . Sincerely, Fernando Landaverde MD 02/21/2023 7:49:55 AM This report has been signed electronically.
== END 2023-02-21 08:33 | disposition home or self-care (01) ==
LOC: SDC 06:11 → AC 06:13
PROVIDERS: PCP Student in an Organized Health Care Education/Training Program; Referring Provider Student in an Organized Health Care Education/Training Program; Visit Provider Surgery
PROC: 0DJD8ZZ Inspection of Lower Intestinal Tract, Via Natural or Artificial Opening Endoscopic (ICD-10-PCS; CPT 45378; principal; 2023-02-21 07:25)
DX: Z12.11 Encounter for screening for malignant neoplasm of colon (principal); J44.9 Chronic obstructive pulmonary disease, unspecified; N18.30 Chronic kidney disease, stage 3 unspecified; K63.5 Polyp of colon; I12.9 Hypertensive chronic kidney disease with stage 1 through stage 4 chronic kidney disease, or unspecified chronic kidney disease; E78.00 Pure hypercholesterolemia, unspecified; Z79.82 Long term (current) use of aspirin; Z79.899 Other long term (current) drug therapy; Z87.891 Personal history of nicotine dependence; Z86.010 Personal history of colon polyps; Z99.81 Dependence on supplemental oxygen
CPT/HCPCS: 45385; 88305; J7120; J2405